=== PATIENT | female | born 1980 | race Caucasian/White ===

== ENCOUNTER 2022-02-11 10:33 | Emergency (ER) | payer OTHER, SELFPAY ==
--- NOTE | ~2022-02-11 | XR_ITS ---
EXAMINATION: XR chest 2V DATE: 02/11/2022 12:10 INDICATION: Pain, shortness of breath and fatigue. TECHNIQUE: PA and lateral views of the chest were obtained. COMPARISON: None FINDINGS: The lungs are clear with no focal airspace opacities, pulmonary edema, pleural effusion or pneumothor ax. The cardiomediastinal silhouette is normal. Cholecystectomy clips in the right upper quadrant. Mi ld thoracic spondylosis. IMPRESSION: 1. No acute cardiopulmonary disease. Reviewed, dictated and finalized at location A.
[2022-02-11 10:40] VITALS: BP 135/88; PULSE 88; RESP 17; TEMP 36.6; O2SAT 99
--- NOTE | 2022-02-11 10:48 | ECG_ITS ---
Measurements Intervals [place] [address] Rate: 85 P: 37 MO: 150 QRS: 35 QRSD: 92 T: -1 QT: 351 QTc: 419 Interpretive Statements SINUS RHYTHM NONSPECIFIC T-WAVE ABNORMALITY INFERIOR LEADS BORDERLINE ECG NO PREVIOUS ECG AVAILABLE FOR COMPARISON Electronically Signed On 02-11-2022 16:57:08 CDT by Killian Cesar M.D.
[2022-02-11 10:59] LABS: Basophils Percent Auto 0.2 % (0.2-1.2); Eosinophils Absolute Auto 0.2 K/mm3 (0-0.3); Eosinophils Percent Auto 1.9 % (0-4.4); Hematocrit 40.4 % (37.0-47.0); Immature Granulocyte Absolute 0.04 K/mm3 (0.00-0.031); Immature Granulocyte Percent A 0.4 % (0-0.5); Lymphocytes Absolute Auto 2.69 K/mm3 (0.9-3.2); Lymphocytes Percent Auto 27.3 % (18.3-44.2); Mean Corpuscular HGB Conc 32.2 g/dl (32-36); Mean Platelet Volume 9.9 fl (7.4-10.4); Monocytes Absolute Auto 0.8 K/mm3 (0.1-0.6); Monocytes Percent Auto 8.3 % (2.6-8.5); Neutrophils Absolute Auto 6.1 K/mm3 (1.3-6.7); Neutrophils Percent Auto 61.9 % (45.5-73.1); Platelet Count Result 363 k/mm3 (150-375); Red Blood Count 4.49 M/mm3 (4.2-5.4); Red Cell Distribution Width 13.9 % (11.5-14.5); White Blood Count 9.9 K/mm3 (4.5-10.0)
[2022-02-11 11:09] LABS: INR 1.2; Prothrombin Time 14.5 Seconds (11.1-14.7)
[2022-02-11 11:12] LABS: D Dimer 0.45 ug/mL (<0.48)
[2022-02-11 11:14] LABS: Alanine Aminotransferase 51 U/L (4-35); Albumin Level 4.8 g/dL (3.5-5.1); Alkaline Phosphatase 97 U/L (38-126); Anion Gap 8 mmol/L (8-16); Aspartate Amino Transferase 53 U/L (14-36); Bilirubin,Total 0.2 mg/dL (0.2-1.3); Blood Urea Nitrogen 8 mg/dL (7-17); Calcium 9.1 mg/dL (8.4-10.2); Carbon Dioxide 25 mmol/L (22-30); Chloride 106 mmol/L (98-107); Estimated CRCL calculation 134 ml/min; Estimated Glomerular Filt Rate > 60; Glucose 111 mg/dL (65-110); Potassium 3.6 mmol/L (3.4-5.0); Sodium 139 mmol/L (137-145)
--- NOTE | 2022-02-11 11:50 | ED.GENADULT ---
HPI - General Adult General Chief complaint: Dizziness Stated complaint: dizzy, possible dental absess Time Seen by Provider: 02/11/22 11:43 Source: patient Mode of arrival: ambulatory Limitations: no limitations History of Present Illness HPI narrative: Patient is 42 years old white female presents with pain at the right upper gum and swelling started last night. Patient also complaining of intermittent chest tightness, dizziness, numbness of the hands and feet, not feeling well, trouble sleeping over the last 2 weeks. Patient reports a lot of stress lately. She denies any fever, chills, nausea, vomiting, diarrhea, constipation, chest pain or shortness of breath today Related Data Allergies Allergy/AdvReac Type Severity Reaction Status Date / Time No Known Allergies Allergy Verified 02/11/22 10:58 Review of Systems Review of Systems: CONSTITUTIONAL: Denies fever, chills, or sweats. EYES: Denies visual changes, redness, or discharge. ENT: Denies rhinorrhea, congestion, sore throat, or otalgia. CARDIOVASCULAR: Denies chest pain, palpitations, or edema. RESPIRATORY: Denies cough or dyspnea. GASTROINTESTINAL: Denies abdominal pain, nausea, vomiting, or diarrhea. GENITOURINARY: Denies dysuria or hematuria. SKIN: Denies rash or itching. MUSCULOSKELETAL: Denies back pain, joint pain, or myalgia. NEUROLOGIC: Denies headache, numbness, or weakness. PSYCHIATRIC: Denies anxiety or depression. [facility] Family History Family History Mother Patient's mother is in good health Father Patient's father is in good health Sibling Patient's sister is in good health Acute myocardial infarction Social History Social History Smoking status: Never smoker Alcohol intake: current Exam Narrative: General appearance: Well-developed, well-nourished Skin: Normal color Head: Normocephalic, nontraumatic Eyes: Clear conjunctiva ENT: Oropharynx normal, ears normal, nose normal. Oral exam showed slightly swollen right upper gum, dental caries and crown, diffusely tender, no obvious abscess at this time Neck: Supple, nontender Chest and respiratory: Airway patent, no respiratory distress, no accessory muscle use Heart: Regular rate/rhythm Abdomen: Soft, nontender, no organomegaly, quiet bowel sounds Vascular: Normal peripheral pulses, normal capillary refill. Musculoskeletal: Normal range of motion, nontender back Neurologic: Alert and oriented ?3, [employer] is normal as tested, no gross motor deficit Course Course Emergency Course: Stable Vital Signs Vital signs: Vital Signs Temperature 36.6 C 02/11/22 10:40 Pulse Rate 88 02/11/22 10:40 Respiratory Rate 17 02/11/22 10:40 Blood Pressure 135/88 02/11/22 10:40 Pulse Oximetry 99 02/11/22 10:40 Temperature 36.6 C 02/11/22 10:40 Pulse Rate 88 02/11/22 10:40 Respiratory Rate 17 02/11/22 10:40 Blood Pressure 135/88 02/11/22 10:40 Pulse Oximetry 99 02/11/22 10:40 Medical Decision Making MDM Narrative Medical decision making narrative: Anxiety-like symptoms, dental infection is my concern Vital Signs Vital Signs: Vital Signs Temperature 36.6 C 02/11/22 10:40 Pulse Rate 88 02/11/22 10:40 Respiratory Rate 17 02/11/22 10:40 Blood Pressure 135/88 02/11/22 10:40 Pulse Oximetry 99 02/11/22 10:40 Temperature 36.6 C 02/11/22 10:40 Pulse Rate 88 02/11/22 10:40 Respiratory Rate 17 02/11/22 10:40 Blood Pressure 135/88 02/11/22 10:40 Pulse Oximetry 99 02/11/22 10:40 Lab Data Result diagrams: 02/11/22 10:50 02/11/22 10:50
[2022-02-11 12:25] VITALS: BP 130/86; PULSE 78; RESP 14; O2SAT 98
== END 2022-02-11 12:28 | disposition home or self-care (01) ==
PROVIDERS: Emergency Provider Emergency Medicine; PCP Family Medicine
DX: K08.89 Other specified disorders of teeth and supporting structures (principal); R42 Dizziness and giddiness; F41.9 Anxiety disorder, unspecified; R94.31 Abnormal electrocardiogram [ECG] [EKG]
CPT/HCPCS: 36415; 71046; 80053; 85025; 85380; 85610; 93005; 99283